=== PATIENT | female | born 1980 | race Caucasian/White ===

== ENCOUNTER 2016-11-16 20:17 | Emergency (ER) | payer OTHER ==
[~2016-11-16] VITALS: Ht 170.2 cm; Wt 99.3 kg
[~2016-11-16 20:17] MED LIST: PRENATAL VITAMI1 T10 PO
[2016-11-16 20:21] VITALS: BP 158/103
--- NOTE | 2016-11-16 21:09 | NUR ---
PT TAKEN TO ULTRASOUND FROM SANDIP
--- NOTE | 2016-11-16 21:30 | NUR ---
PT RETURN FROM ULTRASOUND TO LOBBY
--- NOTE | 2016-11-16 22:03 | NUR ---
PT TAKEN TO BED 2
--- NOTE | 2016-11-16 22:05 | NUR ---
36Y F BIB SELF C/O LOWER BACK PAIN, X 1 WEEK, DENIES TRAUMA TO THE AREA. PT STATES SHE WORKS A [employer] AND SITS ALL DAY . PT DENIES N/V/D; SKIN IS PINK/WARM/DRY; AAOX4 WITH EVEN AND STEADY GAIT; LUNGS CLEAR BL; HR EVEN AND REGULAR; PT DENIES ANY FEVER, CP, SOB, OR COUGH AT THIS TIME; PATIENT STATES PAIN OF 5/10 AT THIS TIME; VSS; PATIENT POSITIONED FOR COMFORT; HOB ELEVATED; BEDRAILS UP X2; BED DOWN. ER MD MADE AWARE OF PT STATUS.
--- NOTE | 2016-11-16 22:08 | NUR ---
Patient being evaluated by physician DR MONIQUE at bedside.
--- NOTE | 2016-11-16 22:08 | NUR ---
Dr. Cruz evaluating patient at bedside.
[2016-11-16] MEDS ORDERED: ACETAMINOPHEN EXTRA STRENGTH 500 MG TAB PO ONE (22:15)
[2016-11-16 22:38] VITALS: BP 142/98
--- NOTE | 2016-11-16 22:38 | NUR ---
Patient discharged with v/s stable. Written and verbal after care instructions given and explained. Patient alert, oriented and verbalized understanding of instructions. Ambulatory with steady gait. All questions addressed prior to discharge. ID band removed. Patient advised to follow up with PMD. Rx of TYLENOL EXTRA STRENGTH 500MG given. Patient educated on indication of medication including possible reaction and side effects. Opportunity to ask questions provided and answered.
== END 2016-11-16 22:38 | disposition home or self-care (01) ==
LOC: MED 20:17
DX: O26.891 Other specified pregnancy related conditions, first trimester (principal); M54.5 Low back pain; Z3A.10 10 weeks gestation of pregnancy